=== PATIENT | male | born 1960 | race Caucasian/White ===

== ENCOUNTER 2021-05-20 17:14 | Emergency (ER) | payer OTHER, SELFPAY ==
[2021-05-20] VITALS (20 sets, daily range): BP systolic 147–172; BP diastolic 91–116; PULSE 48–73; RESP 13–20; TEMP 36.6; O2SAT 96–100
--- NOTE | ~2021-05-20 | XR_ITS ---
EXAMINATION: XR chest 2V DATE: 05/20/2021 17:49 INDICATION: Midsternal chest pain and shortness of breath TECHNIQUE: PA and lateral views of the chest are obtained. COMPARISON: 04/15/2011 FINDINGS: There are minimal airspace opacities of the lung bases. There is no pleural effusion or pne umothorax. The cardiomediastinal silhouette is normal. There are multiple chronic compression fractur es of the thoracic spine which appear stable. IMPRESSION: 1. Minimal bibasilar airspace opacities, likely atelectasis. Reviewed, dictated and finalized at location A.
--- NOTE | 2021-05-20 17:21 | ECG_ITS ---
Measurements Intervals [place] Rate: 69 P: 37 UT: 163 QRS: -1 QRSD: 88 T: 45 QT: 398 QTc: 428 Interpretive Statements SINUS RHYTHM VENTRICULAR PREMATURE COMPLEXES BASELINE ARTIFACT- I, III, AVL BORDERLINE ECG Electronically Signed On 05-20-2021 17:28:07 CDT by Dung Oglesby D.O.
[2021-05-20 17:46] LABS: Basophils Absolute Auto 0.1 K/mm3 (0.0-0.1); Basophils Percent Auto 0.9 % (0.2-1.2); Eosinophils Absolute Auto 0.3 K/mm3 (0-0.3); Eosinophils Percent Auto 3.6 % (0-4.4); Hematocrit 41.9 % (42.0-52.0); Hemoglobin 13.9 g/dL (14.0-18.0); Immature Granulocyte Absolute 0.02 K/mm3 (0.00-0.031); Immature Granulocyte Percent A 0.3 % (0-0.5); Lymphocytes Absolute Auto 1.46 K/mm3 (0.9-3.2); Lymphocytes Percent Auto 21.1 % (18.3-44.2); Mean Corpuscular HGB Conc 33.2 g/dl (32-36); Mean Corpuscular Volume 96.3 fl (80-100); Mean Platelet Volume 10.6 fl (7.4-10.4); Monocytes Absolute Auto 0.6 K/mm3 (0.1-0.6); Monocytes Percent Auto 8.4 % (2.6-8.5); Neutrophils Absolute Auto 4.6 K/mm3 (1.3-6.7); Neutrophils Percent Auto 65.7 % (45.5-73.1); Platelet Count Result 213 k/mm3 (150-375); Red Blood Count 4.35 M/mm3 (4.6-6.20); Red Cell Distribution Width 16.9 % (11.5-14.5); White Blood Count 6.9 K/mm3 (4.5-10.0)
[2021-05-20 17:58] LABS: INR 0.9; Prothrombin Time 12.5 Seconds (11.1-14.7)
[2021-05-20 17:59] LABS: Partial Thromboplastin Time 28.2 SECONDS (22.3-36.8)
[2021-05-20 18:00] LABS: Anion Gap 6 mmol/L (8-16); Blood Urea Nitrogen 21 mg/dL (9-20); Calcium 9.1 mg/dL (8.4-10.2); Carbon Dioxide 29 mmol/L (22-30); Chloride 103 mmol/L (98-107); Estimated CRCL calculation 89 ml/min; Estimated Glomerular Filt Rate > 60; Glucose 98 mg/dL (65-110); Sodium 138 mmol/L (137-145)
[2021-05-20 18:12] LABS: Troponin I < 0.012 ng/mL (0.000-0.034)
[2021-05-20] MEDS: ASPIRIN 81 MG CHEWABLE TABLET 324 MG PO (18:20)
--- NOTE | 2021-05-20 19:37 | ED.GENADULT ---
HPI - General Adult General Chief complaint: Shortness of Breath/Dyspnea Stated complaint: sob Time Seen by Provider: 05/20/21 19:26 Source: patient and RN notes reviewed Mode of arrival: ambulatory Limitations: no limitations History of Present Illness HPI narrative: Patient is 60 years old white male drove himself to the emergency room complaining of chest heaviness and tightness, heavy cannot get a deep breath for months, got worse 1 week ago. Patient also complaining of intermittent tingling numbness of the tips of the fingers bilaterally for months. Patient lives alone, does not work because of chronic back pain. History of seizure. Patient is fully vaccinated for COVID-19. Patient denies any fever, chills, nausea, vomiting, abdominal pain, diarrhea. Patient also denies any stress or depression. Patient main complaint right now is cannot do much Related Data Home Medications Medication Instructions Recorded Confirmed amitriptyline 25 mg tablet 25 mg PO QHS 04/15/21 04/15/21 meloxicam 15 mg tablet 15 mg PO DAILY 04/15/21 04/15/21 phenytoin sodium extended 100 mg 100 mg PO BID cap 04/15/21 04/15/21 capsule Allergies Allergy/AdvReac Type Severity Reaction Status Date / Time No Known Allergies Allergy Verified 04/15/21 15:19 Review of Systems Review of Systems: CONSTITUTIONAL: Denies fever, chills, or sweats. EYES: Denies visual changes, redness, or discharge. ENT: Denies rhinorrhea, congestion, sore throat, or otalgia. CARDIOVASCULAR: Denies chest pain, palpitations, or edema. RESPIRATORY: Denies cough or dyspnea. GASTROINTESTINAL: Denies abdominal pain, nausea, vomiting, or diarrhea. GENITOURINARY: Denies dysuria or hematuria. SKIN: Denies rash or itching. MUSCULOSKELETAL: Denies back pain, joint pain, or myalgia. NEUROLOGIC: Denies headache, numbness, or weakness. PSYCHIATRIC: Denies anxiety or depression. PMFSH Social History Social History Smoking status: Never smoker Alcohol intake: current Exam Narrative: General appearance: Well-developed, well-nourished Skin: Normal color Head: Normocephalic, nontraumatic Eyes: Clear conjunctiva ENT: Oropharynx normal, ears normal, nose normal Neck: Supple, nontender Chest and respiratory: Airway patent, no respiratory distress, no accessory muscle use Heart: Regular rate/rhythm Abdomen: Soft, nontender, no organomegaly, quiet bowel sounds Vascular: Normal peripheral pulses, normal capillary refill. Musculoskeletal: Normal range of motion, nontender back Neurologic: Alert and oriented ?3, E [employer] is normal as tested, no gross motor deficit Course Course Emergency Course: Stable Vital Signs Vital signs: Vital Signs Temperature 36.6 C 05/20/21 17:19 Pulse Rate 73 05/20/21 17:19 Respiratory Rate 14 05/20/21 17:19 Blood Pressure 172/116 H 05/20/21 17:19 Pulse Oximetry 99 05/20/21 17:19 Temperature 36.6 C 05/20/21 17:19 Pulse Rate 59 L 05/20/21 18:14 Respiratory Rate 20 05/20/21 18:14 Blood Pressure 158/96 H 05/20/21 18:14 Pulse Oximetry 99 05/20/21 18:14 Medical Decision Making MDM Narrative Medical decision making narrative: Patient presents with shortness of breath and intermittent tingling numbness of the hands for months. Labs, chest x-ray, ABG on room air and D-dimer ordered. Work-up showed respiratory alkalosis secondary to hyperventilation. Dilantin level is 5, patient is subtherapeutic. Patient told me that he forgets to take the night dose which is 200 mg a day, sometimes he gets sleepy and forget to take it. Patient blood pressure on arrival to the emergency room was 172/116 cur
[2021-05-20 20:03] LABS: Alveolar/Arterial O2 Gradient 30.3 mmHg; Base Excess ABG 0.8 mEq/l (+/-2.0); Fractional Inspired Oxygen 21 %; HCO3 ABG 22.5 mEq/l (22.0-26.0); Oxygen Content ABG 19.9 %vol (16.0-22.0); Oxygen Saturation ABG 97.3 % (95.0-100.0); Oxyhemoglobin 95.4 % THb (90.0-100.0); PCO2 ABG 28.7 mmHg (35.0-45.0); PO2 ABG 85.1 mmHg (80.0-100.0); PO2 FiO2 Ratio Arterial Blood 4.05 %; Total Hemoglobin 14.8 g/dL (12.0-18.0)
[2021-05-20 20:05] LABS: Device ROOM AIR; Modified Allen's Test Pass; Site Drawn RIGHT RADIAL; pH ABG 7.513 (7.350-7.450)
[2021-05-20 20:51] LABS: Add Urine Microscopic? YES; Appearance Urine Clear (Clear); Bilirubin Urine Negative (Negative); Blood Urine Negative (Negative); Color Urine Yellow (Yellow); Glucose Urine UA Negative (Negative); Ketones Urine 1+ mg/dL (Negative); Leukocyte Esterase Ur Negative LEU/UL (Negative); Nitrate Urine Negative (Negative); Protein Urine 2+ mg/dL (Negative); RBC Urine 0-2 /hpf (0-2); Specific Grav Ur 1.025 (1.001-1.035); Squamous Epithelial Cell Urine Rare /hpf (Few); Urobilinogen Urine Negative mg/dL (<2.0); WBC Urine 0-3 /hpf
[2021-05-20 21:00] LABS: Alanine Aminotransferase 47 U/L (4-50); Albumin Level 4.7 g/dL (3.5-5.1); Alkaline Phosphatase 96 U/L (38-126); Aspartate Amino Transferase 57 U/L (17-59); Bilirubin,Total 0.6 mg/dL (0.2-1.3)
[2021-05-20 21:01] LABS: D Dimer 0.39 ug/mL (<0.48)
[2021-05-20 21:03] LABS: Phenytoin Dilantin 5 ug/mL (10-20)
[2021-05-20 21:11] LABS: Troponin I < 0.012 ng/mL (0.000-0.034)
[2021-05-20] MEDS: lisinopriL 10 MG TABLET PO (21:33)
[2021-05-20] MEDS: PHENYTOIN SODIUM 100 MG EXTENDED RELEASE CAP 200 MG PO (21:33)
[2021-05-24 07:36] LABS: Phenytoin Dilantin Free 0.6 mg/L (1.0-2.0)
== END 2021-05-20 21:50 | disposition home or self-care (01) ==
PROVIDERS: Emergency Provider Emergency Medicine; PCP Internal Medicine
DX: F41.9 Anxiety disorder, unspecified (principal); R06.4 Hyperventilation; R07.89 Other chest pain; I10 Essential (primary) hypertension; Z91.14 Patient's other noncompliance with medication regimen; G89.29 Other chronic pain; M54.9 Dorsalgia, unspecified; I49.3 Ventricular premature depolarization
CPT/HCPCS: 36415; 36600; 71046; 80048; 80076; 80185; 80186; 81001; 82805; 84484; 85025; 85380; 85610; 85730; 93005; 99284; A9270

== ENCOUNTER 2022-01-16 18:43 | Emergency (ER) | payer OTHER, SELFPAY ==
[2022-01-16 18:49] VITALS: BP 145/90; PULSE 76; RESP 18; TEMP 36.9; O2SAT 96
--- NOTE | 2022-01-16 20:35 | ED.EYEPROB ---
HPI - Eye Problem General Chief complaint: Eye Problems <ISMA Freeman Last Filed: 01/17/22 13:27> Stated complaint: R EYE FOREIGN BODY <ISMA Freeman Last Filed: 01/17/22 13:27> Time Seen by Provider: 01/16/22 20:18 <ISMA Freeman Last Filed: 01/17/22 13:27> History of Present Illness HPI Narrative: Patient is a 61-year-old male here for evaluation of suspected foreign body in right eye. Patient was cutting aluminum without wearing goggles when he felt a foreign body fly up and hit him in the right eye. Since then he has reported right eye irritation and burning and stinging. Patient rinsed the eye out in the shower without relief of his symptoms. Denies changes to vision. He does not wear contact lenses or corrective lenses. <ISMA Freeman Last Filed: 01/17/22 13:27> Related Data Home medications: Home Medications Medication Instructions Recorded Confirmed amitriptyline 25 mg tablet 25 mg PO QHS 04/15/21 10/10/21 meloxicam 15 mg tablet 15 mg PO DAILY 04/15/21 10/10/21 <ISMA rFeeman Last Filed: 01/17/22 13:27> Allergies/adverse reactions: Allergies Allergy/AdvReac Type Severity Reaction Status Date / Time No Known Allergies Allergy Verified 10/10/21 13:51 <ISMA Freeman Last Filed: 01/17/22 13:27> Review of Systems Review of Systems: Gen.: Denies fevers or chills Eyes: Reports right eye pain ENT: Denies congestion Respiratory: Denies shortness of breath or cough CV: Denies chest pain or palpitations GI: Denies abdominal pain nausea, emesis or diarrhea denies burning, urgency, frequency or hematuria Musculoskeletal: Denies back pain or muscle pain Neuro: Denies numbness, tingling, weakness or focal weakness Skin: Denies rash Except as documented, all other systems reviewed and negative <ISMA Freeman Last Filed: 01/17/22 13:27> [facility] Past Medical History Medical History: Medical History Osteoarthritis Seizure Skin cancer <Lisset Armstrong PA-C - Last Filed: 01/17/22 13:27> Surgical History Surgical History: Surgical History H/O brain surgery History of hip surgery Status post surgical removal of malignant neoplasm of skin <Lisset Armstrong PA-C - Last Filed: 01/17/22 13:27> Family History Family History: Family History Other Heart attack Skin cancer <Lisset Armstrong PA-C - Last Filed: 01/17/22 13:27> Social History Social History: Social History Social History: former smoker Smoking status: Former smoker Alcohol intake: current <Lisset Armstrong PA-C - Last Filed: 01/17/22 13:27> Exam Narrative: Gen: Alert, oriented, no acute distress. Eyes: Right eye with mild amount of thick drainage and very mild conjunctival injection. Upper and lower eyelids everted and swept, no foreign body visualized. Fluorescein exam without uptake in particular area. Cody sign negative. No rust ring visualized. EOMI/PERRLA. Pulm: Respirations even and unlabored, symmetric thorax expansion, no audible stridor or visible cyanosis CV: Regular rate per telemetry GI: No distension, no voluntary/involuntary guarding Neuro: AOx4, moves all extremities without apparent difficulty or weakness, follows commands Skin: No jaundice, no visible bruising, rashes, lesions or wounds on exposed skin Psych: Normal mood/affect, insight/judgement good, adequate fund of knowledge, recent/remote memory intact <Lisset Armstrong PA-C - Last Filed: 01/17/22 13:27> Course BATCH MAKER/PA Physician Supervision For this encounter, I have reviewed the [facility] documentation, treatment plan and medical decision making:
[2022-01-16 22:23] VITALS: BP 138/96; PULSE 86; RESP 14; O2SAT 98
== END 2022-01-16 22:50 | disposition home or self-care (01) ==
PROVIDERS: Emergency Provider Emergency Medicine; PCP Internal Medicine
DX: H10.9 Unspecified conjunctivitis (principal); M19.90 Unspecified osteoarthritis, unspecified site; Z85.828 Personal history of other malignant neoplasm of skin; Z87.891 Personal history of nicotine dependence
CPT/HCPCS: 99283

== ENCOUNTER 2022-04-16 12:21 | Emergency (ER) | payer OTHER, SELFPAY ==
[2022-04-16 12:27] VITALS: BP 134/96; PULSE 81; RESP 16; TEMP 37; O2SAT 98
--- NOTE | 2022-04-16 13:49 | ED.EAR ---
HPI - Ear Problem General Chief complaint: Ear Stated complaint: stick in ear? Time Seen by Provider: 04/16/22 13:26 History of Present Illness HPI Narrative: 61-year-old male presents to the emergency room for evaluation of foreign body in his left ear. Patient states he was mowing his lawn on Thursday when he ran into a ness. This morning his neighbor said that he had a stick in his ear. Patient denies any bleeding or drainage from the ear. Denies any hearing loss or hearing changes. Related Data Home Medications Medication Instructions Recorded Confirmed amitriptyline 25 mg tablet 25 mg PO QHS 04/15/21 10/10/21 meloxicam 15 mg tablet 15 mg PO DAILY 04/15/21 10/10/21 Allergies Allergy/AdvReac Type Severity Reaction Status Date / Time No Known Allergies Allergy Verified 04/14/22 14:12 Review of Systems Review of Systems: CONSTITUTIONAL: Denies fever, chills, or sweats. EYES: Denies visual changes, redness, or discharge. ENT: Reports foreign body left ear CARDIOVASCULAR: Denies chest pain, palpitations, or edema. RESPIRATORY: Denies cough or dyspnea. GASTROINTESTINAL: Denies abdominal pain, nausea, vomiting, or diarrhea. GENITOURINARY: Denies dysuria or hematuria. SKIN: Denies rash or itching. MUSCULOSKELETAL: Denies back pain, joint pain, or myalgia. NEUROLOGIC: Denies headache, numbness, dizziness, or weakness. PSYCHIATRIC: Denies anxiety or depression. PMFSH Past Medical History Medical History Osteoarthritis Seizure Skin cancer Surgical History Surgical History H/O brain surgery History of hip surgery Status post surgical removal of malignant neoplasm of skin Family History Family History Other Heart attack Skin cancer Social History Social History Social History: former smoker Smoking status: Former smoker Alcohol intake: current Exam Narrative: GENERAL: Well-appearing, well-nourished, no physical limitations, and in no acute distress. HEAD: Normocephalic, atraumatic. EYES: Conjunctivae normal, PERRLA and EOMI. ENT: Foreign body visualized left ear canal. No signs of bleeding or discharge noted NECK: Supple. No meningeal signs. No adenopathy or masses. No carotid bruits or JVD CHEST: Clear to auscultation. No respiratory distress. No wheezes rales or rhonchi. No tenderness. HEART: Regular rate and rhythm. No murmur heard. Normal peripheral pulses. EXTREMITIES: Normal range of motion. No edema. No clubbing or cyanosis SKIN: Warm, dry, no rash. No noted wounds NEURO: No focal deficits. Alert and oriented x3. MAEW. CN's II-XI intact bilaterally, normal gait PSYCH: Cooperative. Normal mood and affect. Course Vital Signs Vital signs: Vital Signs Temperature 37.0 C 04/16/22 12:27 Pulse Rate 81 04/16/22 12:27 Respiratory Rate 16 04/16/22 12:27 Blood Pressure 134/96 H 04/16/22 12:27 Pulse Oximetry 98 04/16/22 12:27 Oxygen Delivery Room Air 04/16/22 12:27 Temperature 37.0 C 04/16/22 12:27 Pulse Rate 81 04/16/22 12:27 Respiratory Rate 16 04/16/22 12:27 Blood Pressure 134/96 H 04/16/22 12:27 Pulse Oximetry 98 04/16/22 12:27 Oxygen Delivery Room Air 04/16/22 12:27 Procedures FB Removal Ear Foreign Body #1: Foreign Body Removal Date: 04/16/22 Foreign Body Removal Time: 13:54 Location: ear canal (L) Foreign Body Suspected: organic matter TM intact pre-procedure: yes Foreign Body Removed: yes Foreign Body Removal Technique: forceps Tympanic Membrane Intact Post Procedure: Yes Patient Tolerated Procedure: well Complications: none Medical Decision Making Vital Signs Vital Signs: Vital Signs Temperature 37.0 C 04/16/22 12:27 Pulse Rate 81 09
[2022-04-16] MEDS: TETANUS,DIPHTHERIA,AC PERTUSSIS ADULT (0.5 ML) BOOSTRIX IM (14:24)
== END 2022-04-16 14:29 | disposition home or self-care (01) ==
PROVIDERS: Emergency Provider Nurse Practitioner Family; PCP Internal Medicine
DX: T16.2XXA Foreign body in left ear, initial encounter (principal); Z23 Encounter for immunization; M19.90 Unspecified osteoarthritis, unspecified site; Z85.828 Personal history of other malignant neoplasm of skin; Z87.891 Personal history of nicotine dependence
CPT/HCPCS: 69200; 90471; 90715; 99283

== ENCOUNTER 2024-05-30 17:55 | Emergency (ER) | payer OTHER, SELFPAY ==
--- NOTE | ~2024-05-30 | XR_ITS ---
XR chest 2V Ordering provider: Lisset Patel PA-C History: 63 years Male with . CP . Comparison: May 20, 2021 FINDINGS: MEDIASTINUM: The cardiac silhouette is slightly enlarged. LUNGS: No infiltrates, effusions or pneumothorax. Prominent markings in the lower lobes. Emphysematous changes. OTHER: No free air under the diaphragm. Degenerative spine. Multiple loss of height is seen in the ve rtebrae. If clinically warranted CT is advised. IMPRESSION: No acute cardiopulmonary pathology. Reviewed, dictated and finalized at location A.
--- NOTE | ~2024-05-30 | CT_ITS ---
CT brain wo con Ordering provider: Lisset Patel PA-C History: 63 years Male with . confusion . Comparison: May 14, 2013 Technique: CT of the head without contrast. Radiation reduction technique utilized.The dose-length product was 756.67 mGy-cm. FINDINGS: BRAIN PARENCHYMA AND CSF SPACES: Mild leukoaraiosis and diffuse cortical atrophy more prominent in th e cerebellum.. Mild atheromatous disease. No midline shift, mass effect or hemorrhage. The brain par enchyma and CSF spaces are otherwise normal. VISUALIZED PARANASAL SINUSES: Left sphenoid, bilateral maxillary and ethmoid sinus disease. MASTOIDS: Well aerated. BONES: The bones appear intact. SOFT TISSUES: Visualized nasopharynx is normal. Superficial soft tissues are normal. IMPRESSION: No acute intracranial findings. Reviewed, dictated and finalized at location A.
[2024-05-30 18:46] VITALS: BP 148/92; PULSE 68; RESP 20; TEMP 36.3; O2SAT 100
--- NOTE | 2024-05-30 22:56 | ECG_ITS ---
Test Date: 2024-05-30 23:01:23 Measurements Intervals [place] Rate: 77 P: 27 AL: 171 QRS: -9 QRSD: 90 T: 35 QT: 374 QTc: 426 Interpretive Statements SINUS RHYTHM No previous ECG available for comparison Electronically Signed On 05-31-2024 09:41:52 CDT by Gay Stewart M.D.
--- NOTE | 2024-05-31 00:43 | ED_ITS ---
HPI - General Adult General Chief complaint: Unspecified Stated complaint: feeling tense Time Seen by Provider: 05/30/24 23:58 Source: patient Mode of arrival: ambulatory Limitations: no limitations History of Present Illness HPI narrative: This is a 63 year old male that presents to the ER for feeling tense . Reports pain in his shoulders, chest, jaw. This started this morning. Reports history of seizure disorder, wanted to be checked out. Related Data Home Medications Medication Instructions Recorded Confirmed amitriptyline 25 mg tablet 25 mg PO QHS 04/15/21 10/10/21 meloxicam 15 mg tablet 15 mg PO DAILY 04/15/21 10/10/21 Allergies Allergy/AdvReac Type Severity Reaction Status Date / Time No Known Allergies Allergy Verified 05/30/24 17:56 Review of Systems Review of Systems: CONSTITUTIONAL: Denies fever CARDIOVASCULAR: Reports chest pain RESPIRATORY: Denies cough or dyspnea. GASTROINTESTINAL: Denies abdominal pain, nausea, vomiting PSYCHIATRIC: Reports anxiety and depression. All systems reviewed & are unremarkable except as noted in HPI and below PMFSH Past Medical History Medical History Osteoarthritis Seizure Skin cancer Surgical History Surgical History H/O brain surgery History of hip surgery Status post surgical removal of malignant neoplasm of skin Family History Family History Other Heart attack Skin cancer Social History Social History Social History: Kasi is somewhat confident filling out medical forms. In the last 12 months he has received assistance from an organization or program with transportation, paying utility bills, food, and paying for medications. Smoking status: Former smoker Alcohol intake: current Lack of Transportation: No Lack of Food: Never True Current Housing: I Have Housing Difficulty Paying Gas/Electric Bills: No Difficulty Paying for Meds: No Currently Unemployed: YES Education: High School Diploma/GED Difficulty w/ Childcare or Family Care: No Exam Narrative: GENERAL: Well-appearing, well-nourished, and in no acute distress. HEAD: Normocephalic, atraumatic. EYES: PERRLA and EOMI. ENT: Nares clear, no rhinorrhea or epistaxis. Mucous membranes moist. Oropharynx without tonsillar hypertrophy exudate or other lesions. Bilateral TMs pearly hdez non-bulging NECK: Supple. No adenopathy or masses. CHEST: Clear to auscultation. No respiratory distress. No wheezes rales or rhonchi HEART: Regular rate and rhythm. No murmur heard. Normal peripheral pulses. EXTREMITIES: Normal range of motion. No edema. Strength equal in bilateral upper and lower extremities SKIN: Warm, dry, no rash. NEURO: No focal deficits. Alert and oriented x3. CN II-XII grossly intact PSYCH: Normal mood and affect Course Course Emergency Course: Patient reports feeling much better after Ativan Vital Signs Vital signs: Vital Signs Temperature 97.4 F L 05/30/24 18:46 Pulse Rate 68 05/30/24 18:46 Respiratory Rate 20 05/30/24 18:46 Blood Pressure 148/92 H 05/30/24 18:46 Pulse Oximetry 100 05/30/24 18:46 Oxygen Delivery Room Air 05/30/24 18:46 Temperature 97.4 F L 05/30/24 18:46 Pulse Rate 68 05/30/24 18:46 Respiratory Rate 20 05/30/24 18:46 Blood Pressure 148/92 H 05/30/24 18:46 Pulse Oximetry 100 05/30/24 18:46 Oxygen Delivery Room Air 05/30/24 18:46 Medical Decision Making MDM Narrative Medical decision making narrative: Patient presents to the ER for feeling tense . Appears anxious on exam. Reports relief after Ativan. Blood work and urine notable for some dehydration. Patient hydrated with a L of IV fluids in the ED. CT brain without acute findings. Chest x-ray without acute cardiopulmonary abnormality. Patient updated on his workup and agrees with plan of care. Instructed to have close follow-up with his primary provider. He was given warnings to return to the ER Differential Diagnosis Differential Diagnosis: muscle strain, muscle spasm, anxiety, dehydration Vital Signs Vital Signs: Vital Signs Temperature 97.4 F L 05/30/24 18:46 Pulse Rate 68 05/30/24 18:46 Respiratory Rate 20 05/30/24 18:46 Blood Pressure 148/92 H 05/30/24 18:46 Pulse Oximetry 100 05/30/24 18:46 Oxygen Delivery Room Air 05/30/24 18:46 Temperature 97.4 F L 05/30/24 18:46 Pulse Rate 68 05/30/24 18:46 Respiratory Rate 20 05/30/24 18:46 Blood Pressure 148/92 H 05/30/24 18:46 Pulse Oximetry 100 05/30/24 18:46 Oxygen Delivery Room Air 05/30/24 18:46 Lab Data Lab results reviewed: Yes I reviewed the patient's lab results. 05/31/24 01:11 05/31/24 01:11 Labs: Lab Results 05/31/24 05/31/24 Range/Units 01:11 02:39 WBC 8.1 (4.5-10.0) K/mm3 RBC 5.18 (4.6-6.20) M/mm3 Hgb 15.0 (14.0-18.0) g/dL Hct 44.9 (42.0-52.0) % MCV 86.7 (80-100) fl MCH 29.0 (26-34) pg MCHC 33.4 (32-36) g/dl RDW 17.1 H (11.5-14.5) % Plt Count 342 D (150-375) k/mm3 MPV 11.0 H (7.4-10.4) fl Immature Gran % (Auto) 0.2 (0-0.5) % Neut % (Auto) 75.5 H (45.5-73.1) % Lymph % (Auto) 15.7 L (18.3-44.2) % [place] % (Auto) 7.8 (2.6-8.5) % Eos % (Auto) 0.1 (0-4.4) % Baso % (Auto) 0.7 (0.2-1.2) % Lymph # (Auto) 1.27 (0.9-3.2) K/mm3 [place] # (Auto) 0.6 (0.1-0.6) K/mm3 Eos # (Auto) 0.0 (0-0.3) K/mm3 Baso # (Auto) 0.1 (0.0-0.1) K/mm3 Abs Immat Gran (auto) 0.02 (0.00-0.031) K/mm3 Absolute Neuts (auto) 6.1 (1.3-6.7) K/mm3 Absolute Nucleated RBC 0.000 (0.0-0.012) K/mm3 Nucleated RBC % 0.0 (0.0-0.2) % PT 13.6 (11.1-14.7) Seconds INR 1.0 APTT 27.4 (22.3-36.8) Seconds Sodium 136 L (137-145) mmol/L Potassium 3.6 (3.4-5.0) mmol/L Chloride 94 L (98-107) mmol/L Carbon Dioxide 27 (22-30) mmol/L Anion Gap 15 H (4-12) mmol/L BUN 20 (9-20) mg/dL Creatinine 0.80 (0.7-1.3) mg/dL Estim Creat Clear Calc 86 ml/min Estimated GFR > 60 (59 - ) Glucose 123 H (65-110) mg/dL Calcium 9.7 (8.4-10.2) mg/dL Total Bilirubin 0.9 (0.2-1.3) mg/dL AST 44 (17-59) U/L ALT 40 (6-50) U/L Alkaline Phosphatase 117 (38-126) U/L Troponin I < 0.012 (0.000-0.034) ng/mL Total Protein 9.0 H (6.3-8.2) g/dL Albumin 5.1 (3.5-5.1) g/dL Urine Color Yellow (Yellow) Urine Appearance Clear (Clear) Urine pH 6.5 (5.0-9.0) Ur Specific [place] 1.030 (1.001-1.035) Urine Protein 1+ H (Negative) mg/dL Urine Glucose (UA) Negative (Negative) mg/dL Urine Ketones 2+ H (Negative) mg/dL Ur Blood (Man) Negative (Negative) Urine Nitrate Negative (Negative) Urine Bilirubin Negative (Negative) Urine Urobilinogen 1.0 (<2.0) mg/dL Leukocyte Esterase Rfl Negative (Negative) JERALD/UL Urine RBC 0-2 (0-2) /hpf Urine WBC 0-5 (0-3) /hpf Ur Squamous Epith Cells None seen (Few) /hpf Urine Bacteria None seen /hpf Urine Casts 0-2 Urine Opiates Screen Negative (Negative) Urine Methadone Screen Negative (Negative) Ur Barbiturates Screen Negative (Negative) Ur Phencyclidine Scrn Negative (Negative) Ur Amphetamine Screen Negative (Negative) U Benzodiazepines Scrn Negative (Negative) Urine Cocaine Screen Negative (Negative) U Cannabinoids Screen Negative (Negative) Ethyl Alcohol < 10 (<10) mg/dL Imaging Data Radiologist's impression: ITS Impressions Head CT 05/31/24 01:24 IMPRESSION: No acute intracranial findings. Chest X-Ray 05/31/24 01:31 IMPRESSION: No acute cardiopulmonary pathology. ECG Data EKG #1: ECG completion date: 05/30/24 EKG Interpretation: normal rate, sinus rhythm, no ST changes and normal QT Critical Care Time Critical Care Time Critical Care Time: No Discharge Plan Discharge Clinical Impression: Anxiety Patient Disposition: Home, Self-Care Condition: Improved Instructions: Anxiety (ED) Additional Instructions: Return to the emergency department if you experience fever, chest pain, shortness of breath, abdominal pain with nausea and vomiting, weakness, numbness, or any other symptoms that are concerning to you. Follow up with your primary care doctor Prescriptions: No Action amitriptyline 25 mg tablet 25 mg PO QHS meloxicam 15 mg tablet 15 mg PO DAILY phenytoin sodium extended 100 mg capsule See Rx Instructions .ROUTE .COMPLEX Qty: 90 11RF Dose Instruction: TAKE 1 CAPSULE BY MOUTH IN THE MORNING AND 2 CAPSULES AT BEDTIME Rx Instructions: may take all 3 capsules daily at once in the morning or evening as preferred hydroxyzine pamoate [Vistaril] 50 mg capsule 50 mg PO QID PRN (Reason: anxiety) Qty: 20 0RF losartan-hydrochlorothiazide 50-12.5 mg tablet 1 tablet PO DAILY Qty: 30 0RF ciprofloxacin-dexamethasone [Ciprodex] 0.3-0.1 % drops,suspension 4 drp LEFT EAR Q12H 7 Days Qty: 7.5 0RF Follow-up/Referrals: Debra,Mata Randle MD [Primary Care Provider] -
[2024-05-31] MEDS: LORazepam INJ (*CRX) 2 MG/ML VIAL 1 MG IV PUSH (01:12)
[2024-05-31 01:31] LABS: Basophils Absolute Auto 0.1 K/mm3 (0.0-0.1); Basophils Percent Auto 0.7 % (0.2-1.2); Eosinophils Percent Auto 0.1 % (0-4.4); Hematocrit 44.9 % (42.0-52.0); Immature Granulocyte Absolute 0.02 K/mm3 (0.00-0.031); Immature Granulocyte Percent A 0.2 % (0-0.5); Lymphocytes Absolute Auto 1.27 K/mm3 (0.9-3.2); Lymphocytes Percent Auto 15.7 % (18.3-44.2); Mean Corpuscular HGB Conc 33.4 g/dl (32-36); Mean Corpuscular Volume 86.7 fl (80-100); Monocytes Absolute Auto 0.6 K/mm3 (0.1-0.6); Monocytes Percent Auto 7.8 % (2.6-8.5); Neutrophils Absolute Auto 6.1 K/mm3 (1.3-6.7); Neutrophils Percent Auto 75.5 % (45.5-73.1); Platelet Count Result 342 k/mm3 (150-375); Red Blood Count 5.18 M/mm3 (4.6-6.20); Red Cell Distribution Width 17.1 % (11.5-14.5); White Blood Count 8.1 K/mm3 (4.5-10.0)
[2024-05-31 01:49] LABS: Partial Thromboplastin Time 27.4 Seconds (22.3-36.8); Prothrombin Time 13.6 Seconds (11.1-14.7)
[2024-05-31 01:59] LABS: Alanine Aminotransferase 40 U/L (6-50); Albumin Level 5.1 g/dL (3.5-5.1); Alkaline Phosphatase 117 U/L (38-126); Anion Gap 15 mmol/L (4-12); Aspartate Amino Transferase 44 U/L (17-59); Bilirubin,Total 0.9 mg/dL (0.2-1.3); Blood Urea Nitrogen 20 mg/dL (9-20); Calcium 9.7 mg/dL (8.4-10.2); Carbon Dioxide 27 mmol/L (22-30); Chloride 94 mmol/L (98-107); Estimated CRCL calculation 86 ml/min; Estimated Glomerular Filt Rate > 60; Glucose 123 mg/dL (65-110); Potassium 3.6 mmol/L (3.4-5.0); Sodium 136 mmol/L (137-145)
[2024-05-31 02:00] LABS: Ethanol < 10 mg/dL (<10)
[2024-05-31 02:10] LABS: Troponin I < 0.012 ng/mL (0.000-0.034)
[2024-05-31] MEDS: SODIUM CHLORIDE 0.9% IV 1,000 ML 999 ML IV CONT (02:50)
[2024-05-31 02:51] LABS: Add Urine Microscopic? YES; Appearance Urine Clear (Clear); Bacteria Urine None Seen /hpf; Bilirubin Urine Negative (Negative); Blood Urine Negative (Negative); Color Urine Yellow (Yellow); Glucose Urine UA Negative (Negative); Ketones Urine 2+ mg/dL (Negative); Leukocyte Esterase Ur Negative LEU/UL (Negative); Nitrate Urine Negative (Negative); Non Pathogenic Casts 0-2; Protein Urine 1+ mg/dL (Negative); RBC Urine 0-2 /hpf (0-2); Squamous Epithelial Cell Urine None Seen /hpf (Few); WBC Urine 0-5 /hpf (0-3); pH Urine 6.5 (5.0-9.0)
[2024-05-31 03:03] LABS: Amphetamine Screen Urine Negative (Negative); Barbiturate Screen Urine Negative (Negative); Benzodiazepines Screen Urine Negative (Negative); Cannabinoid Screen Urine Negative (Negative); Cocaine Screen Urine Negative (Negative); Methadone Screen Urine Negative (Negative); Opiate Screen Urine Negative (Negative); Phencyclidine Screen Urine Negative (Negative)
[2024-05-31 04:05] VITALS: BP 146/64; PULSE 67; RESP 17; O2SAT 100
== END 2024-05-31 04:06 | disposition home or self-care (01) ==
PROVIDERS: Emergency Provider Physician Assistant; PCP Internal Medicine
DX: F41.9 Anxiety disorder, unspecified (principal); M19.90 Unspecified osteoarthritis, unspecified site
CPT/HCPCS: 36415; 70450; 71046; 80053; 80307; 81001; 82077; 84484; 85025; 85610; 85730; 93005; 96361; 96374; 99284; J2060; J7030